=== PATIENT | female | born 1985 | race Hispanic/Latino ===

== ENCOUNTER 2021-08-12 10:26 | Outpatient (CLI) | payer OTHER ==
[2021-08-12 20:37] LABS: SARS-CoV-2 PCR by NAA DETECTED (NotDetected)
== END 2021-08-12 10:27 | disposition home or self-care (01) ==
LOC: CSHLAB 10:26
PROVIDERS: ATTEND Family Medicine
DX: U07.1 COVID-19 (principal)
CPT/HCPCS: U0003; U0005

== ENCOUNTER 2021-08-15 13:09 | Day surgery (SDC) | payer OTHER, SELFPAY ==
[2021-08-15 14:51] VITALS: BMI 37.7
[2021-08-15] MEDS ORDERED: Iron Sucrose Complex 500 MG, Admixture Fee 1 EACH in Sodium Chloride 0.9% 250 ML 250 ML IVPB SCH (15:15)
[2021-08-15] MEDS ORDERED: Acetaminophen 500 MG TAB PO SCH (15:15)
== END 2021-08-15 22:19 | disposition home or self-care (01) ==
LOC: CSHLD/OP 13:09
PROVIDERS: ATTEND Emergency Medicine
DX: O99.013 Anemia complicating pregnancy, third trimester (principal); D50.9 Iron deficiency anemia, unspecified; O09.523 Supervision of elderly multigravida, third trimester; O09.33 Supervision of pregnancy with insufficient antenatal care, third trimester; Z3A.35 35 weeks gestation of pregnancy; Z79.82 Long term (current) use of aspirin; Z79.899 Other long term (current) drug therapy
CPT/HCPCS: J1756; J7050

== ENCOUNTER 2021-09-06 04:59 | Inpatient (IN) | payer MEDICAID, OTHER ==
[2021-09-06 05:19] VITALS: BMI 32.1
[2021-09-06] MEDS ORDERED: Misoprostol 200 MCG TAB PR PRN (05:58)
[2021-09-06] MEDS ORDERED: hydrALAZINE 20 MG/ML VIAL SLOW IVP PRN ×2 (05:58→10:03)
[2021-09-06] MEDS ORDERED: Promethazine HCl 25 MG/ML VIAL IM PRN ×3 (05:58→10:03)
[2021-09-06] MEDS ORDERED: Acetaminophen 500 MG TAB PO PRN (05:58)
[2021-09-06] MEDS ORDERED: Diphenoxylate HCl/Atropine Tablet PO PRN (05:58)
[2021-09-06] MEDS ORDERED: Carboprost 250 MCG/ML AMP IM PRN (05:58)
[2021-09-06] MEDS ORDERED: Ibuprofen 800 MG TAB PO PRN (05:58)
[2021-09-06] MEDS ORDERED: Lidocaine 1% (PF) 30 ML VIAL SC PRN (05:58)
[2021-09-06] MEDS ORDERED: Ondansetron PF 4 MG/2 ML Vial IVP PRN ×3 (05:58→10:03)
[2021-09-06] MEDS ORDERED: Butorphanol Tartrate 1 MG/ML VIAL SLOW IVP PRN (05:58)
[2021-09-06] MEDS ORDERED: Lactated Ringer's 1,000 ML IV SCH (06:00)
[2021-09-06] MEDS ORDERED: NS w/ Oxytocin 30 units 500 ML IV SCH ×2 (06:00→10:03)
[2021-09-06 06:36] LABS: Hemoglobin 11.4 g/dL (12.0-15.5); Mean Corpuscular HGB CONC 32.6 g/dL (32.0-36.0); Mean Corpuscular Hemoglobin 26.1 pg (27.0-33.0); Mean Corpuscular Volume 80.3 fl (81.6-98.3); Mean Platelet Volume 10.2 fl (7.4-10.4); Platelet Count 263 10x3/uL (150-450); RBC Distribution Width 22.2 % (11.5-14.5); Red Blood Cell (RBC) Count 4.36 10x6/uL (3.90-5.03); White Blood Cell (WBC) Count 9.3 10x3/uL (3.5-10.5)
[2021-09-06] MEDS ORDERED: ePHEDrine Sulfate 50 MG/10 ML VIAL SLOW IVP PRN (06:46)
[2021-09-06] MEDS ORDERED: Naloxone HCl 0.4 mg/ml Vial IVP PRN ×2 (06:46)
[2021-09-06] MEDS ORDERED: Moisturizing Cream (Eucerin) 113 GM JAR TOP PRN (06:46)
[2021-09-06] MEDS ORDERED: Acetaminophen 325 MG TAB PO PRN (06:46)
[2021-09-06] MEDS ORDERED: diphenhydrAMINE 50 MG/ML VIAL IVP PRN (06:46)
[2021-09-06] MEDS ORDERED: Lactated Ringer's 500 ML IV PRN (06:46)
[2021-09-06] MEDS ORDERED: Fentanyl 2 mcg/Bup 0.1% Cadd 100 ML ONE (06:47)
[2021-09-06 06:58] LABS: ALT (SGPT) 13 U/L (8-55); AST (SGOT) 19 U/L (5-34); Albumin 3.4 g/dL (3.5-5.0); Alkaline Phosphatase 223 U/L (40-110); Anion Gap 18 mmol/L (10-20); BUN (Urea Nitrogen) 11 mg/dL (7.0-18.7); Bilirubin, Total 0.3 mg/dL (0.2-1.2); Calc. Creatinine Clearance 135 mL/min (70-130); Calcium 8.8 mg/dL (7.8-10.44); Carbon Dioxide 19 mmol/L (22-29); Chloride 105 mmol/L (98-107); Globulin 3.6 g/dL (2.4-3.5); Glucose 108 mg/dL (70-105); Sodium 138 mmol/L (136-145)
[2021-09-06] MEDS ORDERED: Fentanyl 2 mcg/Bupivacaine 0.1% Cassette 100 ML EPIDURAL SCH (07:00)
[2021-09-06] MEDS ORDERED: Communication Order-Pharmacy FS SCH (07:00)
[2021-09-06 07:18] LABS: Hep B Surf Ag Non-Reactive S/CO (NonReactive)
[2021-09-06 07:19] LABS: Syphilis Antibody Nonreactive (Nonreactive); Syphilis Antibody Index 0.05 S/CO (<1.00 Non-Reactive)
[2021-09-06] MEDS ORDERED: Bupivacaine 0.25% HCL 30 ML VIAL ONE (08:00)
[2021-09-06] MEDS ORDERED: Preparation H Ointment 28 GM TUBE PR PRN (10:03)
[2021-09-06] MEDS ORDERED: Boostrix 0.5 ML (Tdap) VIAL IM ONE (10:03)
[2021-09-06] MEDS ORDERED: Milk Of Magnesia 30 ML UDCUP PO PRN (10:03)
[2021-09-06] MEDS ORDERED: diphenhydrAMINE 25 MG CAP PO PRN (10:03)
[2021-09-06] MEDS ORDERED: Bisacodyl 10 MG SUPP PR PRN (10:03)
[2021-09-06] MEDS ORDERED: Ferrous Sulfate 325 MG TAB PO SCH (10:15)
[2021-09-06] MEDS ORDERED: Docusate 100 MG CAP PO SCH (10:15)
[2021-09-06] MEDS ORDERED: Prenatal Vitamin 1 TAB PO SCH (10:15)
[2021-09-06] MEDS: Ibuprofen 800 MG TAB PO SCH ×2 (13:13→21:24)
[2021-09-06 13:25] LABS: SARS-CoV-2 NAA Rapid Test Not Detected (NotDetected)
[2021-09-06] MEDS: Ferrous Sulfate 325 MG TAB PO SCH (14:29)
[2021-09-06] MEDS: Docusate 100 MG CAP PO SCH (21:25)
[2021-09-07] MEDS: Ibuprofen 800 MG TAB PO SCH ×2 (06:02→13:36)
[2021-09-07] MEDS: Ferrous Sulfate 325 MG TAB PO SCH (07:36)
[2021-09-07 08:10] VITALS: BP 100/60; TEMP 98.2
[2021-09-07] MEDS: Docusate 100 MG CAP PO SCH (08:43)
[2021-09-07] MEDS ORDERED: Prenatal Vitamin 1 TAB PO SCH (09:00)
== END 2021-09-07 16:10 | disposition home or self-care (01) | DRG 806 ==
LOC: CSHLD/OP 04:59 → CSHLD 05:43 → CSHPP 10:15
PROVIDERS: ADMIT Obstetrics & Gynecology; ATTEND Obstetrics & Gynecology
PROC: 10E0XZZ Delivery of Products of Conception, External Approach (ICD-10-PCS; principal; 2021-09-06)
DX: O99.02 Anemia complicating childbirth (principal); O10.92 Unspecified pre-existing hypertension complicating childbirth; Z37.0 Single live birth; Z20.822 Contact with and (suspected) exposure to COVID-19; D50.9 Iron deficiency anemia, unspecified; Z3A.38 38 weeks gestation of pregnancy; Z87.440 Personal history of urinary (tract) infections; Z86.16 Personal history of COVID-19; Z79.82 Long term (current) use of aspirin; Z79.899 Other long term (current) drug therapy
CPT/HCPCS: 36415; 51701; 80053; 85027; 86780; 86850; 86900; 86901; 87340; S0020; U0002